=== PATIENT | male | born 1950 | race Caucasian/White ===

== ENCOUNTER 2021-09-01 10:23 | Emergency (ER) | payer MEDICARE, MEDICAID ==
[~2021-09-01] VITALS: Ht 182.9 cm; Wt 76.0 kg
[2021-09-01] MEDS ORDERED: ONDANSETRON HCL 4MG/2ML INJ IV STA (10:39)
[2021-09-01] MEDS ORDERED: SODIUM CHLORIDE 0.9% 1,000 ML IV ONE (10:45)
[2021-09-01 11:16] LABS: BASOPHILS % 1.2 % (0.0-2.0); EOSINOPHILS % 2.7 % (0.0-5.0); HEMOGLOBIN. 13.1 g/dL (14.0-18.0); LYMPHOCYTES % 33.3 % (20.0-50.0); MEAN CORPUSCULAR HEMOGLOBIN 27.4 pg (28.0-32.0); MEAN CORPUSCULAR VOLUME 83.4 fL (80.0-94.0); MEAN PLATELET VOLUME 7.1 fl (7.4-10.4); MONOCYTES % 6.8 % (2.0-8.0); PLATELET 211 x1000/uL (130-400); RED BLOOD CELL COUNT 4.79 mill/uL (4.7-6.1); RED CELL DISTRIBUTION WIDTH 14.6 % (11.6-14.6)
[2021-09-01 11:23] LABS: CHLORIDE 105 mEq/L (98-107)
[2021-09-01] MEDS ORDERED: ONDA4TAB5 MT (13:12)
[2021-09-01 13:31] VITALS: BP 138/82
== END 2021-09-01 13:37 | disposition home or self-care (01) ==
LOC: ER 10:36
DX: R42 Dizziness and giddiness (principal); R53.1 Weakness; E11.65 Type 2 diabetes mellitus with hyperglycemia; I10 Essential (primary) hypertension; Z71.89 Other specified counseling
CPT/HCPCS: 36415; 80053; 80320; 85025; 93005; 96361; 96374; 99284; J2405; J7030; G0480